=== PATIENT | female | born 1935 | race Caucasian/White ===

== ENCOUNTER 2021-10-09 10:57 | Inpatient (IN) | payer MEDICARE ==
[~2021-10-09] VITALS: Ht 162.6 cm; Wt 92.5 kg
[~2021-10-09 10:57] MED LIST: ATENOLOL100 MG PO; ATENOLOL50 MG PO; CAPTOPRIL-HCTZ1 EAC3 PO; COUMADIN5 M1 PO; FOSAMAX PLUS D1 EACH PO; LASIX40 MG PO; LESCOL20 MG; POTASSIUM CHLO20 ME1 PO
[2021-10-09] MEDS ORDERED: SODIUM CHLORIDE 0.9% 500ML 500 ML IV ONE (11:45)
[2021-10-09 12:05] LABS: BASOPHILS # (AUTO) 0.1 (0.0-0.1); BASOPHILS % 0.4 % (0.0-1.0); EOSINOPHILS # (AUTO) 0.2 (0.0-0.4); EOSINOPHILS % 1.8 % (0.0-6.0); HEMATOCRIT 43.3 % (34.2-44.1); HEMOGLOBIN 13.8 g/dL (12.0-16.0); LYMPHOCYTES # (AUTO) 1.3 (1.0-3.2); LYMPHOCYTES % 11.7 % (18.0-39.1); MEAN CORPUSCULAR HEMOGLOBIN 30.3 pg (28-32); MEAN CORPUSCULAR HGB CONC 31.9 g/dL (31-35); MEAN CORPUSCULAR VOLUME 95.2 fL (81-99); MONOCYTES # (AUTO) 1.1 (0.2-0.8); MONOCYTES % 9.7 % (4.4-11.3); NEUTROPHILS # (AUTO) 8.5 (2.1-6.9); PLATELET COUNT 246 x10e3/uL (140-360); RED BLOOD COUNT 4.55 x10e6/uL (3.6-5.1); RED CELL DISTRIBUTION WIDTH 14.1 % (11.7-14.4)
[2021-10-09 12:10] LABS: INR 1.68; PROTHROMBIN TIME 21.1 seconds (11.9-14.5)
[2021-10-09 12:11] LABS: PARTIAL THROMBOPLASTIN TIME 31.7 seconds (23.8-35.5)
[2021-10-09 12:18] LABS: ALANINE AMINOTRANSFERASE 15 IU/L (0-55); ALBUMIN 3.6 g/dL (3.5-5.0); ALBUMIN/GLOBULIN RATIO 1.1 (0.8-2.0); ALKALINE PHOSPHATASE 60 IU/L (40-150); ANION GAP 13.4 mmol/L (8-16); BLOOD UREA NITROGEN 16 mg/dL (7-26); BUN/CREATININE RATIO 18 (6-25); CALCIUM 10.1 mg/dL (8.4-10.2); CARBON DIOXIDE 27 mmol/L (22-29); CHLORIDE 107 mmol/L (98-107); CREATINE KINASE 123 IU/L (29-168); CREATININE, SERUM 0.91 mg/dL (0.57-1.11); GLUCOSE 93 mg/dL (74-118); MAGNESIUM 2.2 MG/DL (1.3-2.1); POTASSIUM 3.4 mmol/L (3.5-5.1); SODIUM 144 mmol/L (136-145)
[2021-10-09 13:21] LABS: CLARITY,URINE CLEAR (CLEAR); COLOR,URINE YELLOW (YELLOW); KETONES,URINE TRACE (NEGATIVE); LEUKOCYTE ESTERASE ,URINE NEGATIVE (NEGATIVE); NITRITE,URINE NEGATIVE (NEGATIVE); PROTEIN,URINE DIPSTICK 1+ (NEGATIVE); URINE UROBILINOGEN 1 mg/dL (0.2 - 1)
[2021-10-09 13:41] LABS: BACTERIA,URINE FEW /HPF; EPITHELIAL CELLS,URINE FEW /LPF; WBC,URINE (MAN) 0-5 /HPF (0-5)
[2021-10-09 13:42] LABS: MUCUS,URINE FEW (RARE)
[2021-10-09] MEDS ORDERED: HYDRALAZINE HCL 20 MG/ML VIAL IV PRN (14:00)
[2021-10-09] MEDS ORDERED: ONDANSETRON HCL INJ 2MG/ML 2ML 2 MG/ML VIAL IV PRN (14:00)
[2021-10-09 16:58] VITALS: BP 162/46
[2021-10-09] MEDS ORDERED: ATENOLOL 100 MG TAB PO SCH (17:00)
[2021-10-09 17:08] VITALS: BP 162/46
[2021-10-09 17:15] VITALS: BP 162/46
[2021-10-09 18:57] LABS: CREATINE KINASE 125 IU/L (29-168)
[2021-10-09 20:52] VITALS: BP 118/69
[2021-10-09 21:53] VITALS: BP 118/69
[2021-10-10] VITALS (9 sets, daily range): BP systolic 109–148; BP diastolic 45–94
[2021-10-10 06:06] LABS: BASOPHILS % 0.6 % (0.0-1.0); EOSINOPHILS # (AUTO) 0.4 (0.0-0.4); EOSINOPHILS % 6.3 % (0.0-6.0); HEMATOCRIT 37.7 % (34.2-44.1); HEMOGLOBIN 12.2 g/dL (12.0-16.0); LYMPHOCYTES # (AUTO) 0.8 (1.0-3.2); LYMPHOCYTES % 12.6 % (18.0-39.1); MEAN CORPUSCULAR HEMOGLOBIN 29.8 pg (28-32); MEAN CORPUSCULAR HGB CONC 32.4 g/dL (31-35); MEAN CORPUSCULAR VOLUME 92.2 fL (81-99); MONOCYTES # (AUTO) 0.6 (0.2-0.8); MONOCYTES % 9.8 % (4.4-11.3); NEUTROPHILS # (AUTO) 4.6 (2.1-6.9); NEUTROPHILS % 70.4 % (38.7-80.0); PLATELET COUNT 224 x10e3/uL (140-360); RED BLOOD COUNT 4.09 x10e6/uL (3.6-5.1); RED CELL DISTRIBUTION WIDTH 14.1 % (11.7-14.4)
[2021-10-10 06:36] LABS: ALBUMIN 2.9 g/dL (3.5-5.0); ALBUMIN/GLOBULIN RATIO 1.2 (0.8-2.0); ANION GAP 9.6 mmol/L (8-16); CALCIUM 9.2 mg/dL (8.4-10.2); CREATININE, SERUM 0.84 mg/dL (0.57-1.11); POTASSIUM 3.6 mmol/L (3.5-5.1)
[2021-10-10 07:02] LABS: CREATINE KINASE 69 IU/L (29-168)
[2021-10-10 08:27] LABS: CHOL/HDL RATIO 2.4 (3.0-3.6)
[2021-10-10] MEDS ORDERED: ONDANSETRON HCL 4 MG ORAL DISINTEGRATING TAB PO PRN (08:30)
[2021-10-10] MEDS: HYDROCHLOROTHIAZIDE 25 MG TAB PO SCH (09:00)
[2021-10-10] MEDS ORDERED: CAPTOPRIL PO SCH (09:00)
[2021-10-10] MEDS ORDERED: HYDROCHLOROTHIAZIDE PO SCH (09:00)
[2021-10-10] MEDS ORDERED: ATENOLOL 50 MG TAB PO SCH (09:00)
[2021-10-10] MEDS ORDERED: [UNRECOGNIZED DRUG - OTHER] PO SCH (09:00)
[2021-10-10] MEDS: FUROSEMIDE 40 MG TAB PO SCH (09:26)
[2021-10-10] MEDS: POTASSIUM CHLORIDE 10MEQ EA PO SCH (09:26)
[2021-10-10] MEDS: CAPTOPRIL 25 MG TAB PO SCH (09:28)
[2021-10-10 12:52] LABS: CREATINE KINASE 68 IU/L (29-168)
[2021-10-10 19:07] LABS: BASOPHILS % 0.5 % (0.0-1.0); EOSINOPHILS # (AUTO) 0.5 (0.0-0.4); EOSINOPHILS % 5.2 % (0.0-6.0); HEMATOCRIT 38.5 % (34.2-44.1); HEMOGLOBIN 12.2 g/dL (12.0-16.0); LYMPHOCYTES # (AUTO) 1.6 (1.0-3.2); LYMPHOCYTES % 17.8 % (18.0-39.1); MEAN CORPUSCULAR HGB CONC 31.7 g/dL (31-35); MEAN CORPUSCULAR VOLUME 94.6 fL (81-99); MONOCYTES # (AUTO) 0.9 (0.2-0.8); MONOCYTES % 10.1 % (4.4-11.3); NEUTROPHILS # (AUTO) 5.8 (2.1-6.9); NEUTROPHILS % 66.2 % (38.7-80.0); PLATELET COUNT 244 x10e3/uL (140-360); RED BLOOD COUNT 4.07 x10e6/uL (3.6-5.1); RED CELL DISTRIBUTION WIDTH 14.3 % (11.7-14.4)
[2021-10-10 19:29] LABS: ALBUMIN 3.1 g/dL (3.5-5.0); ALBUMIN/GLOBULIN RATIO 1.1 (0.8-2.0); CALCIUM 9.4 mg/dL (8.4-10.2); CREATININE, SERUM 1.17 mg/dL (0.57-1.11)
[2021-10-10 19:41] LABS: CHOL/HDL RATIO 2.5 (3.0-3.6)
[2021-10-10 20:01] LABS: THYROID STIMULATING HORMONE 2.055 uIU/mL (0.350-4.940)
[2021-10-11 03:43] VITALS: BP 131/46
[2021-10-11 08:00] VITALS: BP_SYST 131; BP_SYST 149; BP_DIAS 46; BP_DIAS 55
[2021-10-11] MEDS: CAPTOPRIL 25 MG TAB PO SCH (08:42)
[2021-10-11] MEDS: POTASSIUM CHLORIDE 10MEQ EA PO SCH (08:43)
[2021-10-11] MEDS: HYDROCHLOROTHIAZIDE 25 MG TAB PO SCH (08:43)
[2021-10-11] MEDS: FUROSEMIDE 40 MG TAB PO SCH (08:43)
[2021-10-11 11:57] VITALS: BP 143/54
[2021-10-11 15:57] VITALS: BP 136/58
[2021-10-11] MEDS ORDERED: WARFARIN SOD 2 MG TAB PO SCH (17:00)
[2021-10-11] MEDS ORDERED: ATORVASTATIN 20 MG TAB PO SCH (21:00)
[2021-10-12] MEDS ORDERED: LISINOPRIL 2.5 MG TAB PO SCH (09:00)
== END 2021-10-11 17:30 | DRG 309 ==
LOC: ER 11:17 → ERHOLD 14:10 → MED/SURG2 16:45 → OBSVTOIN 10-11 09:14
DX: R00.1 Bradycardia, unspecified (principal); I50.32 Chronic diastolic (congestive) heart failure; R55 Syncope and collapse; F03.90 Unspecified dementia, unspecified severity, without behavioral disturbance, psychotic disturbance, mood disturbance, and anxiety; M79.604 Pain in right leg; I11.0 Hypertensive heart disease with heart failure; Z86.711 Personal history of pulmonary embolism; Z95.828 Presence of other vascular implants and grafts; Z91.81 History of falling; J44.9 Chronic obstructive pulmonary disease, unspecified; E78.00 Pure hypercholesterolemia, unspecified; Z79.01 Long term (current) use of anticoagulants; Z96.653 Presence of artificial knee joint, bilateral; R41.3 Other amnesia; Z74.09 Other reduced mobility
CPT/HCPCS: 0223U; 36415; 70450; 71045; 72125; 80053; 80061; 81001; 82550; 82553; 83735; 84443; 84484; 85025; 85610; 85730; 87086; 93005; 93306; 94799; 99251; 99284; G0378; J7040

== ENCOUNTER 2021-11-12 13:44 | Emergency (ER) | payer MEDICARE, OTHER ==
[~2021-11-12] VITALS: Ht 162.6 cm; Wt 92.5 kg
== END 2021-11-12 16:52 | disposition home or self-care (01) ==
LOC: ER 14:14
DX: S00.83XA Contusion of other part of head, initial encounter (principal); W18.30XA Fall on same level, unspecified, initial encounter; Y92.89 Other specified places as the place of occurrence of the external cause; F03.90 Unspecified dementia, unspecified severity, without behavioral disturbance, psychotic disturbance, mood disturbance, and anxiety; I10 Essential (primary) hypertension; J44.9 Chronic obstructive pulmonary disease, unspecified; I50.9 Heart failure, unspecified; E78.5 Hyperlipidemia, unspecified
CPT/HCPCS: 70450; 72125; 99282

== ENCOUNTER 2022-08-11 01:37 | Emergency (ER) | payer MEDICARE ==
[~2022-08-11] VITALS: Ht 162.6 cm; Wt 92.5 kg
[2022-08-11 01:47] VITALS: O2SAT 100
== END 2022-08-11 03:50 | disposition home or self-care (01) ==
LOC: ER 01:42
DX: S06.300A Unspecified focal traumatic brain injury without loss of consciousness, initial encounter (principal); W01.0XXA Fall on same level from slipping, tripping and stumbling without subsequent striking against object, initial encounter; Y93.01 Activity, walking, marching and hiking; Y92.89 Other specified places as the place of occurrence of the external cause; F03.90 Unspecified dementia, unspecified severity, without behavioral disturbance, psychotic disturbance, mood disturbance, and anxiety; I10 Essential (primary) hypertension; J44.9 Chronic obstructive pulmonary disease, unspecified; E78.5 Hyperlipidemia, unspecified; I50.9 Heart failure, unspecified
CPT/HCPCS: 70450; 72125; 99283